=== PATIENT | male | born 1955 | race African-American/Black ===

== ENCOUNTER 2023-10-13 11:55 | Emergency (ER) | payer OTHER ==
[~2023-10-13] VITALS: Ht 180.3 cm; Wt 118.0 kg
[2023-10-13 11:59] VITALS: O2SAT 98
[2023-10-13] MEDS ORDERED: OXYMETAZOLINE HCL NASAL SPRAY 15ML BOTHNSTRLS SCH (13:00)
[2023-10-13 13:48] LABS: HEMATOCRIT. 34.5 % (42.0-52.0); HEMOGLOBIN. 10.4 g/dL (14.0-18.0); MEAN CORPUSCULAR HEMOGLOBIN 24.4 pg (28.0-32.0); MEAN CORPUSCULAR HGB CONC 30.1 g/dL (31.0-37.0); MEAN CORPUSCULAR VOLUME 81.1 fL (80.0-94.0); PLATELET 202 x1000/uL (130-400); RED BLOOD CELL COUNT 4.25 mill/uL (4.7-6.1); RED CELL DISTRIBUTION WIDTH 16.7 % (11.6-14.6); WHITE BLOOD COUNT 14.6 x1000/uL (4.5-11.0)
[2023-10-13 13:50] LABS: DIFFERENTIAL COMMENT 1
[2023-10-13 13:57] LABS: POTASSIUM 4.5 mEq/L (3.5-5.1)
[2023-10-13 13:59] LABS: CALCIUM 8.3 mg/dL (8.7-10.4)
[2023-10-13 14:00] LABS: PARTIAL THROMBOPLASTIN TIME 33.3 sec (23.4-31.0)
[2023-10-13 14:12] LABS: CREATININE 11.2 mg/dL (0.6-1.3)
[2023-10-13 14:17] LABS: ANISOCYTOSIS 1+; PLATELET ESTIMATE NORMAL
[2023-10-13 14:51] VITALS: BP 139/64; PULSE 92; RESP 18; TEMP 99.4
== END 2023-10-13 14:56 | disposition home or self-care (01) ==
LOC: ER 13:19
DX: R04.0 Epistaxis (principal); I10 Essential (primary) hypertension; Z99.2 Dependence on renal dialysis
CPT/HCPCS: 36415; 80048; 85025; 86850; 86900; 99283